=== PATIENT | female | born 1995 | race Caucasian/White ===

== ENCOUNTER → 2019-05-16 19:45 | Outpatient (CLI) | payer MEDICAID, SELFPAY | PROVIDERS: Referring Provider Nurse Practitioner Family; Visit Provider Nurse Practitioner Family | DX: G47.33 Obstructive sleep apnea (adult) (pediatric) (principal) | CPT/HCPCS: 95810 ==

== ENCOUNTER 2019-07-02 13:41 | Outpatient (RCR) | payer MEDICAID, SELFPAY | END 2019-07-02 23:59 | LOC: NS 13:41 | PROVIDERS: Visit Provider Nurse Practitioner Family | DX: E66.01 Morbid (severe) obesity due to excess calories (principal); Z68.42 Body mass index [BMI] 45.0-49.9, adult; G47.33 Obstructive sleep apnea (adult) (pediatric); Z71.3 Dietary counseling and surveillance | CPT/HCPCS: 97802 ==

== ENCOUNTER → 2019-07-03 20:36 | Outpatient (CLI) | payer MEDICAID, SELFPAY | PROVIDERS: Referring Provider Nurse Practitioner Family; Visit Provider Nurse Practitioner Family | DX: G47.33 Obstructive sleep apnea (adult) (pediatric) (principal) | CPT/HCPCS: 95811 ==

== ENCOUNTER 2019-07-16 15:59 | Outpatient (RCR) | payer MEDICAID, SELFPAY | END 2019-08-02 23:59 | LOC: NS 15:59 | PROVIDERS: Visit Provider Nurse Practitioner Family | DX: E66.01 Morbid (severe) obesity due to excess calories (principal); Z68.42 Body mass index [BMI] 45.0-49.9, adult; G47.33 Obstructive sleep apnea (adult) (pediatric); Z71.3 Dietary counseling and surveillance | CPT/HCPCS: 97803 ==

== ENCOUNTER 2019-08-20 15:30 | Outpatient (RCR) | payer MEDICAID, SELFPAY | END 2019-09-01 23:59 | LOC: NS 15:30 | PROVIDERS: Visit Provider Nurse Practitioner Family | DX: Z71.3 Dietary counseling and surveillance (principal); E66.01 Morbid (severe) obesity due to excess calories; Z68.42 Body mass index [BMI] 45.0-49.9, adult; G47.33 Obstructive sleep apnea (adult) (pediatric); I10 Essential (primary) hypertension | CPT/HCPCS: 97803 ==

== ENCOUNTER 2019-10-01 14:30 | Outpatient (RCR) | payer MEDICAID, SELFPAY | END 2019-10-02 23:59 | LOC: NS 14:30 | PROVIDERS: Visit Provider Nurse Practitioner Family | DX: Z71.3 Dietary counseling and surveillance (principal); E66.01 Morbid (severe) obesity due to excess calories; Z68.42 Body mass index [BMI] 45.0-49.9, adult; G47.33 Obstructive sleep apnea (adult) (pediatric); I10 Essential (primary) hypertension | CPT/HCPCS: 97803 ==

== ENCOUNTER 2019-10-29 14:00 | Outpatient (RCR) | payer MEDICAID, SELFPAY | END 2019-11-02 23:59 | LOC: NS 14:00 | PROVIDERS: Visit Provider Nurse Practitioner Family | DX: Z71.3 Dietary counseling and surveillance (principal); E66.01 Morbid (severe) obesity due to excess calories; Z68.42 Body mass index [BMI] 45.0-49.9, adult; G47.33 Obstructive sleep apnea (adult) (pediatric); I10 Essential (primary) hypertension | CPT/HCPCS: 97803 ==

== ENCOUNTER 2019-11-12 14:09 | Outpatient (RCR) | payer MEDICAID, SELFPAY | END 2019-12-01 23:59 | LOC: NS 14:09 | PROVIDERS: Visit Provider Nurse Practitioner Family | DX: Z71.3 Dietary counseling and surveillance (principal); E66.01 Morbid (severe) obesity due to excess calories; Z68.42 Body mass index [BMI] 45.0-49.9, adult; G47.33 Obstructive sleep apnea (adult) (pediatric); I10 Essential (primary) hypertension | CPT/HCPCS: 97803 ==

== ENCOUNTER 2019-12-03 14:09 | Outpatient (RCR) | payer MEDICAID, SELFPAY | END 2019-12-03 23:59 | disposition home or self-care (01) | LOC: NS 14:09 | PROVIDERS: Visit Provider Nurse Practitioner Family | DX: Z71.3 Dietary counseling and surveillance (principal); E66.01 Morbid (severe) obesity due to excess calories; Z68.42 Body mass index [BMI] 45.0-49.9, adult; G47.33 Obstructive sleep apnea (adult) (pediatric); I10 Essential (primary) hypertension | CPT/HCPCS: 97803 ==

== ENCOUNTER → 2020-11-12 08:38 | Outpatient (CLI) | payer MEDICAID, SELFPAY ==
[2020-11-12 09:17] LABS: Hemoglobin A1c 8.2 % (3.8-5.6)
[2020-11-12 09:29] LABS: Vitamin D,25 Hydroxy 13.9 ng/mL
[2020-11-12 09:32] LABS: Cholesterol 181 mg/dL (200); High Density Lipoprotein 33 mg/dL; Prolactin 10.6 ng/mL; Thyroid Stim Hormone (TSH) 1.41 uIU/mL (0.358-3.74); Triglycerides 282 mg/dL; Very Low Density Lipoprotein 56 mg/dL (5-40)
== END ==
PROVIDERS: PCP Nurse Practitioner Primary Care; Referring Provider Psychiatry & Neurology Psychiatry; Visit Provider Psychiatry & Neurology Psychiatry
DX: F19.10 Other psychoactive substance abuse, uncomplicated (principal); R53.83 Other fatigue; Z79.899 Other long term (current) drug therapy
CPT/HCPCS: 36415; 80061; 82140; 82306; 83036; 84146; 84443